=== PATIENT | female | born 1995 ===

== ENCOUNTER 2017-02-28 09:32 | Emergency (ER) | payer MEDICAID ==
[2017-02-28 09:40] VITALS: BP 123/78; PULSE 78; RESP 17; TEMP 97.9; O2SAT 100; BMI 18.0
[2017-02-28] MEDS ORDERED: Sodium Chloride 0.9% 1,000 ML IV STA (09:50)
--- NOTE | 2017-02-28 09:51 | ED PDOC ---
Arrival/HPI - General Time Seen by Provider: 02/28/17 09:37 Historian: Patient - History of Present Illness Narrative History of Present Illness (Text): 02/28/17 09:40 22 year old female, , one had 1 , Blood type O+ (obtained from the 02/23/2017 visit), last sonogram from 02/23/2017 show possible impending missed , nkda, complaining of vaginal spotting on and off x 2 days. Pt. stated that she noticed bright red spotting when she wipes going to the bathroom which she feels it's coming from the vaginal canal, no rectal bleeding or constipation, no fever or chills, had pelvic pain but resolved, been feeling the breast engorgement and tenderness since the beginning of the , no night sweat, no chest pain or shortness of breath, no other medical or psychological complaints. Past Medical History - Provider Review Nursing Documentation Reviewed: Yes - Infectious Disease Hx of Infectious Diseases: None - Psychiatric Hx Substance Use: No - Surgical History Hx Section: Yes - Anesthesia Hx Anesthesia: Yes Hx Anesthesia Reactions: No Hx Malignant Hyperthermia: No - Suicidal Assessment Feels Threatened In Home Enviroment: No Family/Social History - Physician Review Nursing Documentation Reviewed: Yes Family/Social History: Unknown Family HX Smoking Status: Never Smoked Hx Alcohol Use: No Hx Substance Use: No Allergies/Home Meds Allergies/Adverse Reactions: Allergies No Known Allergies Allergy (Verified 02/28/17 09:40) Home Medications: Home Meds Medication Instructions Recorded Confirmed No Known Home Med 02/28/17 02/28/17 Review of Systems - Review of Systems Constitutional: absent: Fatigue, Fevers Eyes: absent: Vision Changes ENT: absent: Hearing Changes Respiratory: absent: SOB, Cough, Sputum Cardiovascular: absent: Chest Pain Gastrointestinal: absent: Abdominal Pain, Nausea, Vomiting Genitourinary Female: Vaginal Bleeding. absent: Dysuria, Frequency, Hematuria, Urine Output Changes, Vaginal Discharge Musculoskeletal: absent: Arthralgias Skin: absent: Rash, Pruritis Neurological: absent: Headache, Dizziness Physical Exam Vital Signs Reviewed: Yes Vital Signs Temp Pulse Resp BP Pulse Ox 02/28/17 09:40 97.9 F 78 17 123/78 100 Temperature: Afebrile Blood Pressure: Normal Pulse: Regular Respiratory Rate: Normal Appearance: Positive for: Well-Appearing, Non-Toxic, Comfortable Pain Distress: None Mental Status: Positive for: Alert and Oriented X 3 - Systems Exam Head: Present: Atraumatic, Normocephalic Pupils: Present: PERRL Extroacular Muscles: Present: EOMI Conjunctiva: Present: Normal Mouth: Present: Moist Mucous Membranes Neck: Present: Normal Range of Motion Respiratory/Chest: Present: Clear to Auscultation, Good Air Exchange. 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 No: Murmurs Abdomen: Present: Normal Bowel Sounds. 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 No: Vaginal Discharge, Vaginal Bleeding, Vaginal Lesions, Adenexal Tenderness, Adenexal Mass, Cervical Motion Tendernes, Odor Back: Present: Normal Inspection Upper Extremity: Present: Normal Inspection. No: Cyanosis, Edema Lower Extremity: Present: Normal Inspection. No: Edema Neurological: Present: GCS=15, Speech Normal, Motor Func Grossly Intact, Memory Normal Skin: Present: Warm, Dry, Normal Color. No: Rashes Psychiatric: Present: Alert, Oriented x 3, Normal Insight, Normal Concentration Medical Decision Making ED Course and Treatment: 02/28/17 09:54 -labs/ua/beta hcg -transvaginal -observe and reassess 02/28/17 11:01 -Labs are non-significant -Beta hcg 95092 from 5006.60 -Urinalysis show no UTI -Sonogram show: IMPRESSION: Intrauterine gestational sac corresponding to approximately 5 weeks 3 days. pole not visualized. No subchorionic hemorrhage. Normal yolk sac. cardiac activity not visualized. Followup with serial beta HCG and transvaginal ultrasound is advised. -Pt. has no active bleeding or pain in the ER -I reviewed all labs and radiology studies with the patient, advised follow up with the pmd and obgyn for routine labs and transvaginal within 48 hours for follow up. -Discharge home with education on taking tylenol for pain as needed, [place] [address] from 5006.60, follow up with your own pmd and obgyn within 2 days , return to the ER for any new or worsening signs or symptoms. - Lab Interpretations Lab Results: 02/28/17 10:00 02/28/17 10:00 Lab Results 02/28/17 10:15: Urine Color Yellow, Urine Appearance Sl cloudy, Urine pH 7.5, Ur Specific [place] 1.020, Urine Protein Negative, Urine Glucose (UA) Negative, Urine Ketones Negative, Urine Blood Trace-intact H, Urine Nitrate Negative, Urine Bilirubin Negative, Urine Urobilinogen 0.2, Ur Leukocyte Esterase Negative , Urine RBC 1 - 3, Urine WBC 0 - 2, Ur Epithelial Cells 4 - 5, Urine Bacteria Few 02/28/17 10:00: Beta HCG, Quant [id number] H 02/28/17 10:00: Sodium 139, Potassium 4.2, Chloride 103, Carbon Dioxide 26, Anion Gap 14, BUN 7, Creatinine 0.6, Est GFR ( Amer) > 60, Est GFR (Non- Af Amer) > 60, Random Glucose 83, Calcium 9.3, Total Bilirubin 0.6, AST 15, ALT 22, Alkaline Phosphatase 42, Total Protein 6.9, Albumin 4.5, Globulin 2.4, Albumin/Globulin Ratio 1.9 H 02/28/17 10:00: WBC 5.8 D, RBC 4.63, Hgb 14.2, Hct 41.5, MCV 89.6, MCH 30.7, MCHC 34.2, RDW 12.1, Plt Count 161, MPV 12.6 H, Gran % 58.4, Lymph % (Auto) 29.1 , [place] % (Auto) 10.0 H, Eos % (Auto) 2.2, Baso % (Auto) 0.3, Gran # 3.37, Lymph # 1.7, [place] # 0.6, Eos # 0.1, Baso # 0.02 I have reviewed the lab results: Yes Interpretation: No clinic. lab abnormalty - RAD Interpretation Radiology Orders: 02/28/17 09:50 OB TRANSVAGINAL [US] Stat PROCEDURE: Obstetrical ultrasound examination HISTORY: approx. 6 weeks , spotting? COMPARISON: Not available TECHNIQUE: Transabdominal and transvaginal FINDINGS: The uterus measures 8.3 x 5.2 x 6.9 cm. There is no uterine mass. There is an intrauterine gestational sac. A yolk sac is identified measuring 4 mm in diameter. There is no pole identified. The gestational sac diameter corresponds to 5 weeks 3 days. There is no cardiac activity evident. There is no subchorionic hemorrhage. The cervix is long and closed. The right ovary measures 2.5 x 2.1 x 2.4 cm. There is no mass. Normal flow is demonstrated. The left ovary measures 3.3 x 1.7 x 2.7 cm. There is no mass. Normal flow is demonstrated. IMPRESSION: Intrauterine gestational sac corresponding to approximately 5 weeks 3 days. pole not visualized. No subchorionic hemorrhage. Normal yolk sac. cardiac activity not visualized. Followup with serial beta HCG and transvaginal ultrasound is advised. Client Services Assistant: Radiologist - Medication Orders Current Medication Orders: Discontinued Medications Sodium Chloride (Sodium Chloride 0.9%) 1,000 mls @ 999 mls/hr IV .Q1H1M STA Stop: 02/28/17 10:50 Last Admin: 02/28/17 09:55 Dose: 999 mls/hr - PA / BITUMEN PLANT OPERATOR / Resident Statement / has reviewed & agrees with the documentation as recorded. Disposition/Present on Arrival - Present on Arrival Any Indicators Present on Arrival: No History of DVT/PE: No History of Uncontrolled Diabetes: No Urinary Catheter: No History of Decub. Ulcer: No History Surgical Site Infection Following: None - Disposition Have Diagnosis and Disposition been Completed?: Yes Diagnosis: First trimester , Vaginal bleeding Disposition: HOME/ ROUTINE Disposition Time: 11:06 Patient Plan: Discharge Condition: GOOD Additional Instructions: -Discharge home with education on taking tylenol for pain as needed, [place] [address] from 5006.60, follow up with your own pmd and obgyn within 2 days , return to the ER for any new or worsening signs or symptoms. Referrals: [employer] Howard Aparicio, [Primary Care Provider] - [place] up [place] [facility] [place] [facility] [place] - Follow up with primary Dennis Giang MD [Staff Provider] - Follow up with primary Forms: WORK NOTE
[2017-02-28 10:14] LABS: BASO # 0.02 K/mm3 (0.0-2.0); BASO % 0.3 % (0.0-3.0); EOS # 0.1 (0.0-0.7); EOS % 2.2 % (1.5-5.0); GRAN # 3.37 (1.4-6.5); GRAN % 58.4 % (50.0-68.0); HEMOGLOBIN 14.2 g/dL (12.0-16.0); LYMPH # 1.7 (1.2-3.4); LYMPH % 29.1 % (22.0-35.0); MEAN CELL VOLUME 89.6 fl (80.0-105.0); MEAN CORPUSCULAR HEMOGLOBIN 30.7 pg (25.0-35.0); MEAN CORPUSCULAR HGB CONC 34.2 g/dl (31.0-37.0); MEAN PLATELET VOLUME 12.6 fl (7.0-11.0); MONO # 0.6 (0.1-0.6); PLATELET COUNT 161 10^3/uL (120.0-450.0); RBC 4.63 10^6/uL (3.5-6.1); RED CELL DISTRIBUTION WIDTH 12.1 % (11.5-14.5); WHITE BLOOD COUNT 5.8 10^3/ul (4.5-11.0)
[2017-02-28 10:24] LABS: ALB/GLOB RATIO 1.9 (1.1-1.8); ALBUMIN 4.5 g/dL (3.0-4.8); ALT/SGPT 22 U/L (7-56); AST/SGOT 15 U/L (15-39); BLOOD UREA NITROGEN 7 mg/dL (7-21); CALCIUM 9.3 mg/dL (8.4-10.5); GFR AFRICAN-AMERICAN > 60; GFR NON-AFRICAN AMERICAN > 60
[2017-02-28 10:35] LABS: PH,URINE 7.5 (4.7-8.0); URINE BILIRUBIN NEGATIVE (NEGATIVE); URINE BLOOD TRACE-INTACT (NEGATIVE); URINE GLUCOSE (UA) NEGATIVE (NEGATIVE); URINE LEUKOCYTE ESTERASE NEGATIVE Leu/uL (NEGATIVE); URINE NITRATE NEGATIVE (NEGATIVE); URINE PROTEIN NEGATIVE mg/dL (<30 mg/dL); URINE UROBILINOGEN 0.2 E.U./dL (<1 E.U./dL)
[2017-02-28 10:41] LABS: URINE APPEARANCE SL CLOUDY (CLEAR); URINE COLOR YELLOW (YELLOW)
[2017-02-28 10:55] LABS: URINE BACTERIA FEW (NEG); URINE WBC 0 - 2 /hpf (0-6)
--- NOTE | 2017-02-28 10:55 | US ---
PROCEDURE: Obstetrical ultrasound examination HISTORY: approx. 6 weeks , spotting? COMPARISON: Not available TECHNIQUE: Transabdominal and transvaginal FINDINGS: The uterus measures 8.3 x 5.2 x 6.9 cm. There is no uterine mass. There is an intrauterine gestational sac. A yolk sac is identified measuring 4 mm in diameter. There is no pole identified. The gestational sac diameter corresponds to 5 weeks 3 days. There is no cardiac activity evident. There is no subchorionic hemorrhage. The cervix is long and closed. The right ovary measures 2.5 x 2.1 x 2.4 cm. There is no mass. Normal flow is demonstrated. The left ovary measures 3.3 x 1.7 x 2.7 cm. There is no mass. Normal flow is demonstrated. IMPRESSION: Intrauterine gestational sac corresponding to approximately 5 weeks 3 days. pole not visualized. No subchorionic hemorrhage. Normal yolk sac. cardiac activity not visualized. Followup with serial beta HCG and transvaginal ultrasound is advised.
== END 2017-02-28 11:17 | disposition home or self-care (01) ==
LOC: ED 09:32
DX: O20.9 Hemorrhage in early pregnancy, unspecified (principal); Z3A.01 Less than 8 weeks gestation of pregnancy
CPT/HCPCS: 76817; 80053; 81001; 84702; 85025; 99284; J7040

== ENCOUNTER 2017-03-02 15:41 | Emergency (ER) | payer MEDICAID ==
[2017-03-02 15:42] VITALS: BMI 18.0
[2017-03-02 15:48] VITALS: TEMP 98.1
[2017-03-02] MEDS ORDERED: Sodium Chloride 0.9% 1,000 ML IV STA (16:25)
--- NOTE | 2017-03-02 16:39 | ED PDOC ---
Arrival/HPI - General Chief Complaint: Abdominal Pain Time Seen by Provider: 03/02/17 15:42 Historian: Patient - History of Present Illness Narrative History of Present Illness (Text): 03/02/17 16:07 A 22 year old female, G2:P1, had 1 , Blood type O+ (obtained from the 02/23/2017 visit), last sonogram 02/23/2017, presents to the emergency department for persistent vaginal bleeding and lower back pain, which began 7 days ago. The patient was recently in the emergency department for the same symptoms, but since they have not changed she came back to the emergency department. She reports the bleeding to be brown spotting and she denies any large amount or gushes of blood. She also notes not being able to tolerate anything by mouth because she is persistently nauseous during her as well as had episodes of vomiting. Denies dysuria or frequency. Time/Duration: 1 week Symptom Onset: Gradual Symptom Course: Unchanged Activities at Onset: Light Context: Home Past Medical History - Infectious Disease Hx of Infectious Diseases: None - Psychiatric Hx Substance Use: No - Surgical History Hx Section: Yes - Anesthesia Hx Anesthesia: Yes Hx Anesthesia Reactions: No Hx Malignant Hyperthermia: No - Suicidal Assessment Feels Threatened In Home Enviroment: No Family/Social History Family/Social History: Unknown Family HX Smoking Status: Never Smoked Hx Alcohol Use: No Hx Substance Use: No Allergies/Home Meds Allergies/Adverse Reactions: Allergies No Known Allergies Allergy (Verified 02/28/17 09:40) Review of Systems - Review of Systems Constitutional: Other (episodes of dizziness,"feels like I get warm") Eyes: absent: Vision Changes ENT: absent: Hearing Changes Respiratory: absent: SOB, Cough Cardiovascular: absent: Chest Pain Gastrointestinal: Nausea, Vomiting. absent: Abdominal Pain, Constipation, Diarrhea, Hematemesis Genitourinary Female: Vaginal Bleeding. absent: Dysuria, Frequency, Hematuria, Urine Output Changes, Vaginal Discharge Musculoskeletal: Back Pain. absent: Neck Pain Skin: Other (pale). absent: Skin Lesions Neurological: absent: Headache, Focal Weakness Endocrine: Diaphoresis Psychiatric: absent: Depression Physical Exam - Physical Exam Narrative Physical Exam (Text): 03/02/17 16:47 Head: Atraumatic. Normocephalic. Eyes: PERRL. EOMI. Conjunctivae are not pale. ENT: Mucous membranes are moist and intact. Oropharynx is clear and symmetric. Neck: Supple. Full ROM. No JVD. No lymphadenopathy. Cardiovascular: Regular rate. Regular rhythm. No murmurs, rubs, or gallops. Distal pulses are 2+ and symmetric. Pulmonary/Chest: No evidence of respiratory distress. Clear to auscultation bilaterally. No wheezing, rales or rhonchi. Abdominal: Very mild suprapublic tenderness. No rebound, guarding, or rigidity. No organomegaly. Good bowel sounds. No ruq pain. No lateral lower abdominal pain. Pelvic: no gross bleeding noted Back: Mild lower lumbar tenderness. Extremities: No edema. No cyanosis. No clubbing. Full range of motion in all extremities. No calf tenderness. Skin: Skin is warm and dry. No petechiae. No purpura. Neurological: Alert, awake, and oriented to person, place, time, and situation. Normal speech. Motor and sensory intact. Psychiatric: Good eye contact. Normal interaction, affect, and behavior. Vital Signs Reviewed: Yes Vital Signs Temp Pulse Resp BP Pulse Ox 03/02/17 20:50 80 17 99/55 L 99 03/02/17 19:00 91 H 18 107/69 98 03/02/17 17:19 98 H 18 105/68 98 03/02/17 15:42 98.1 F 104 H 16 103/66 98 Temperature: Afebrile Blood Pressure: Normal Pulse: Tachycardic Respiratory Rate: Normal Appearance: Positive for: Well-Appearing, Non-Toxic, Comfortable Pain Distress: Mild Mental Status: Positive for: Alert and Oriented X 3 Medical Decision Making ED Course and Treatment: 03/02/17 16:48 Impression: A 22 year old female who is 6 weeks with vaginal bleeding and back pain. States symptoms persistent since last ER visit. Differential Diagnosis included but are not limited to: Intrauterine vs. Ectopic vs. Miscarriage Plan: -- Transvaginal Ultrasound -- Labs -- IV Fluids -- Urinalysis -- Reassess and disposition Prior Visits: Notes and results from previous visits were reviewed. The patient was last seen in the emergency department on 02/28/17 for vaginal bleeding. The patient was discharged home. Progress Notes: On examination, no heavy bleeding. NO ABDOMINAL PAIN. She reports nausea and vomiting for past several days. IV fluids initiated. Labs ordered and ultrasound ordered to reassess from previous visit. OB Pelvic Ultrasound Precinct Commanding Officer : Adebayo Medrano MD Report Date : 03/02/2017 17:36:30 HISTORY:back pain, vaginal bleeding COMPARISON:None available. FINDINGS: UTERUS:There ease an intrauterine gestational sac identified. The gestational sac diameter corresponds to 5 weeks 3 days. A yolk sac is visualized measuring 4 mm. No pole is identified. No cardiac activity is seen. Twila-gestational hemorrhage: None. Uterus measures 6.9 x 4.5 x 4.1 cm. No mass CERVIX:Long and closed. No cervical abnormality seen. RIGHT OVARY:Measures 3.3 x 2.0 x 1.9 cm. No mass. Normal flow. LEFT OVARY:Measures 2.3 x 1.4 x 1.5 cm. No mass. Normal flow. FREE FLUID:None. OTHER FINDINGS:None. IMPRESSION:Intrauterine gestational sac corresponding to approximately 5 weeks 3 days. No pole identified. Followup with transvaginal pelvic ultrasound and serial beta HCG is advised. Patient complained of nausea while in ED. Medications reviewed with patient, side effects of medications reviewed with patient given . Patient received dose of Reglan IV in ED. Patient after receiving this injection , began to feel shaky and dizzy. She was re-evaluated, denied abdominal pain or chest pain or sob. I suspected side effect from Reglan. No respiratory distress or urticaria or angioedema note. Benadryl ordered for the patient. Risks/side effects of this reviewed. Patient with resolution of "shaky" sensation and dizziness after Benadryl. On re-exam, cv stable, no abdominal pain, no chest pain or sob. Ultrasound AND beta hcg levels again reviewed with patient, mother and spouse. Stressed possibility of miscarriage vs. early , although given persistent spotting am concerned for risk of miscarriage. UA results reviewed. Will d/c with abx, advised close f/u with clinical information systems director. - Lab Interpretations Lab Results: 03/02/17 16:30 03/02/17 16:30 Lab Results 03/02/17 16:30: Urine Color Yellow, Urine Appearance Clear, Urine pH 6.5, Ur Specific [place] 1.020, Urine Protein Trace H, Urine Glucose (UA) Negative, Urine Ketones Negative, Urine Blood Small H, Urine Nitrate Negative, Urine Bilirubin Negative, Urine Urobilinogen 1.0 H, Ur Leukocyte Esterase Negative, Urine RBC 1 - 3, Urine WBC 1 - 3, Ur Epithelial Cells 6 - 8, Urine Bacteria Mod 03/02/17 16:30: Beta HCG, Quant [id number] H 03/02/17 16:30: Sodium 137, Potassium 3.9, Chloride 100, Carbon Dioxide 27, Anion Gap 14, BUN 11, Creatinine 0.6, Est GFR ( Amer) > 60, Est GFR (Non- Af Amer) > 60, Random Glucose 83, Calcium 9.6, Total Bilirubin 0.8, AST 43 H, ALT 23, Alkaline Phosphatase 46, Total Protein 7.4, Albumin 4.8, Globulin 2.6, Albumin/Globulin Ratio 1.8 03/02/17 16:30: WBC 8.9 D, RBC 4.87, Hgb 15.1, Hct 42.8, MCV 87.9, MCH 31.0, MCHC 35.3, RDW 12.0, Plt Count 168, MPV 12.7 H, Gran % 70.4 H, Lymph % (Auto) 18.8 L, [place] % (Auto) 9.7 H, Eos % (Auto) 0.9 L, Baso % (Auto) 0.2, Gran # 6.28 , Lymph # 1.7, [place] # 0.9 H, Eos # 0.1, Baso # 0.02 - RAD Interpretation Radiology Orders: 03/02/17 16:40 OB TRANSVAGINAL [US] Stat - Medication Orders Current Medication Orders: Discontinued Medications Diphenhydramine HCl (Benadryl) 50 mg PO STAT STA Stop: 03/02/17 19:02 Last Admin: 03/02/17 19:10 Dose: 50 mg Sodium Chloride (Sodium Chloride 0.9%) 1,000 mls @ 1,000 mls/hr IV .Q1H STA Stop: 03/02/17 17:24 Last Admin: 03/02/17 16:40 Dose: 1,000 mls/hr Metoclopramide HCl (Reglan) 10 mg IVP STAT STA Stop: 03/02/17 17:55 Last Admin: 03/02/17 18:16 Dose: 10 mg - PA / SKIP TENDER / Resident Statement MD/DO has reviewed & agrees with the documentation as recorded. - Scribe Statement The provider has reviewed the documentation as recorded by the Scribe Bertha Doran Provider Scribe Attestation: All medical record entries made by the Julia were at my direction and personally dictated by me. I have reviewed the chart and agree that the record accurately reflects my personal performance of the history, physical exam, medical decision making, and the department course for this patient. I have also personally directed, reviewed, and agree with the discharge instructions and disposition. Disposition/Present on Arrival - Present on Arrival Any Indicators Present on Arrival: No History of DVT/PE: No History of Uncontrolled Diabetes: No Urinary Catheter: No History of Decub. Ulcer: No History Surgical Site Infection Following: None - Disposition Have Diagnosis and Disposition been Completed?: Yes Diagnosis: Threatened , UTI (urinary tract infection) Disposition: HOME/ ROUTINE Disposition Time: 20:30 Patient Plan: Discharge Condition: GOOD Discharge Instructions (ExitCare): Threatened Miscarriage (ED), Urinary Tract Infection in (ED) Additional Instructions: Follow-up with your scruff worker in 2 days. Return to ER immediately if you develop any bleeding, abdominal pain, any lightheadedness or dizziness, any chest pain or shortness of breath, any nausea or vomiting, any numbness or weakness. Take antibiotics as directed for possible urinary tract infection. Your ultrasound today does not reveal a clear heart beat. This may represent a miscarriage although a normal early is also possible, in early stages. It is imperative that you follow-up with your scruff worker and have your "beta-hcg" levels followed. Return to the Emergency Department if your symptoms worsen, do not improve, or if you have any other problems. Avoid medication Reglan/Metoclopramide as possible side effect from this medication. Please contact your doctor or call one of the physicians/clinics you have been referred to that are listed on the Patient Visit Information form that is included in your discharge packet. Bring any paperwork you were given at discharge with you along with any medications you are taking to your follow up visit. Our treatment cannot replace ongoing medical care by a primary care provider (PCP) outside of the emergency department. Thank you for allowing the [facility] team to be part of your care today. If you had an X-Ray or CT scan: A Radiologist will review the ED reading if any change in treatment is needed we will contact you. If you had a blood, urine, or wound culture: It will take several days for the results, if any change in treatment is needed we will contact you. Prescriptions: Nitrofurantoin Macrocrystal [Nitrofurantoin] 100 mg PO BID #10 capsule [facility]errals[facility] [Outside] - Follow up with primary Linsey Mena MD [Primary Care Provider] - Follow up with primary Dennis Giang MD [Staff Provider] - Follow up with primary Forms: [facility] (Mauritian)
[2017-03-02 16:53] LABS: BASO # 0.02 K/mm3 (0.0-2.0); BASO % 0.2 % (0.0-3.0); EOS # 0.1 (0.0-0.7); EOS % 0.9 % (1.5-5.0); GRAN # 6.28 (1.4-6.5); GRAN % 70.4 % (50.0-68.0); HEMATOCRIT 42.8 % (36.0-48.0); LYMPH # 1.7 (1.2-3.4); LYMPH % 18.8 % (22.0-35.0); MEAN CELL VOLUME 87.9 fl (80.0-105.0); MEAN CORPUSCULAR HGB CONC 35.3 g/dl (31.0-37.0); MEAN PLATELET VOLUME 12.7 fl (7.0-11.0); MONO # 0.9 (0.1-0.6); MONO % 9.7 % (1.0-6.0); PH,URINE 6.5 (4.7-8.0); URINE BILIRUBIN NEGATIVE (NEGATIVE); URINE BLOOD SMALL (NEGATIVE); URINE GLUCOSE (UA) NEGATIVE (NEGATIVE); URINE KETONE NEGATIVE (NEGATIVE); URINE LEUKOCYTE ESTERASE NEGATIVE Leu/uL (NEGATIVE); URINE PROTEIN TRACE mg/dL (<30 mg/dL); WHITE BLOOD COUNT 8.9 10^3/ul (4.5-11.0)
[2017-03-02 16:54] LABS: URINE APPEARANCE CLEAR (CLEAR); URINE COLOR YELLOW (YELLOW)
[2017-03-02 17:00] LABS: ALB/GLOB RATIO 1.8 (1.1-1.8); BILIRUBIN,TOTAL 0.8 mg/dL (0.2-1.3); BLOOD UREA NITROGEN 11 mg/dL (7-21); CALCIUM 9.6 mg/dL (8.4-10.5); CARBON DIOXIDE 27 mmol/L (21-33); CHLORIDE 100 mmol/L (98-107); GFR AFRICAN-AMERICAN > 60; GLUCOSE,RANDOM 83 mg/dL (70-110); POTASSIUM 3.9 mmol/L (3.6-5.0); SODIUM 137 mmol/L (132-148); TOTAL PROTEIN 7.4 g/dL (5.8-8.3)
[2017-03-02 17:06] LABS: ALKALINE PHOSPHATASE 46 U/L (38-133); ALT/SGPT 23 U/L (7-56); AST/SGOT 43 U/L (15-39)
[2017-03-02 17:21] LABS: URINE BACTERIA MOD (NEG)
--- NOTE | 2017-03-02 17:38 | US ---
PROCEDURE: OB Pelvic Ultrasound HISTORY: back pain, vaginal bleeding COMPARISON: None available. FINDINGS: UTERUS: There ease an intrauterine gestational sac identified. The gestational sac diameter corresponds to 5 weeks 3 days. A yolk sac is visualized measuring 4 mm. No pole is identified. No cardiac activity is seen. Twila-gestational hemorrhage: None. Uterus measures 6.9 x 4.5 x 4.1 cm. No mass CERVIX: Long and closed. No cervical abnormality seen. RIGHT OVARY: Measures 3.3 x 2.0 x 1.9 cm. No mass. Normal flow. LEFT OVARY: Measures 2.3 x 1.4 x 1.5 cm. No mass. Normal flow. FREE FLUID: None. OTHER FINDINGS: None. IMPRESSION: Intrauterine gestational sac corresponding to approximately 5 weeks 3 days. No pole identified. Followup with transvaginal pelvic ultrasound and serial beta HCG is advised.
[2017-03-02] MEDS ORDERED: DiphenhydrAMINE 50 mg/ml Inj IVP ONE (18:56)
[2017-03-02 20:50] VITALS: BP 99/55; PULSE 80; RESP 17; O2SAT 99
== END 2017-03-02 21:38 | disposition home or self-care (01) ==
LOC: ED 15:41
DX: O20.0 Threatened abortion (principal); O23.41 Unspecified infection of urinary tract in pregnancy, first trimester; Z3A.01 Less than 8 weeks gestation of pregnancy
CPT/HCPCS: 76817; 80053; 81001; 84702; 85025; 96361; 96374; 99284; J2765; J7040

== ENCOUNTER 2017-06-25 21:06 | Emergency (ER) | payer MEDICAID ==
[2017-06-25 21:43] VITALS: BMI 21.7
[2017-06-25 21:47] VITALS: RESP 18
--- NOTE | 2017-06-25 22:40 | ED PDOC ---
Arrival/HPI <Marcus Lainez - Last Filed: 06/25/17 23:14> - General Historian: Patient <Tim Yee A - Last Filed: 06/26/17 01:15> - General Chief Complaint: Female Genitourinary Time Seen by Provider: 06/25/17 21:08 - History of Present Illness Narrative History of Present Illness (Text): 06/25/17 22:37 22yo female who present with complaint intermittent pain on her C section area with vaginal spotting x days now. Also notes nausea and vomiting earlier this morning. States the pain is usually when she lifts heavy objects at work. States it resolved and then happened again when she lifted object at work. Describes pain as cramps. Notes that the pain and bleeding are all currently resolved. She states she is 5months and have a OB. she plan to see the OB tomorrow. she denies fever, dysuria, any other complaint. (Tim Yee A) Past Medical History - Provider Review Nursing Documentation Reviewed: Yes - Infectious Disease Hx of Infectious Diseases: None - Reproductive Currently : Yes - Cardiac Hx Cardiac Disorders: No - Pulmonary Hx Respiratory Disorders: No - Neurological Hx Neurological Disorder: No - HEENT Hx HEENT Disorder: No - Renal Hx Renal Disorder: No - Endocrine/Metabolic Hx Endocrine Disorders: No - Hematological/Oncological Hx Blood Disorders: No - Integumentary Hx Dermatological Disorder: No - Musculoskeletal/Rheumatological Hx Musculoskeletal Disorders: No - Gastrointestinal Hx Gastrointestinal Disorders: No - Genitourinary/Gynecological Hx Genitourinary Disorders: No - Psychiatric Hx Psychophysiologic Disorder: No Hx Substance Use: No - Surgical History Hx Section: Yes - Anesthesia Hx Anesthesia: Yes Hx Anesthesia Reactions: No Hx Malignant Hyperthermia: No - Suicidal Assessment Feels Threatened In Home Enviroment: No <Tim Yee A - Last Filed: 06/26/17 01:15> Family/Social History - Physician Review Nursing Documentation Reviewed: Yes Family/Social History: Unknown Family HX Smoking Status: Never Smoked Hx Alcohol Use: No Hx Substance Use: No <Tim Yee A - Last Filed: 06/26/17 01:15> Allergies/Home Meds <Marcus Lainez - Last Filed: 06/25/17 23:14> <Tim Yee A - Last Filed: 06/26/17 01:15> Allergies/Adverse Reactions: Allergies No Known Allergies Allergy (Verified 06/25/17 21:43) Home Medications: Home Meds Medication Instructions Recorded Confirmed Vit No.126/Iron/Folic 1 tab PO DAILY 06/25/17 06/25/17 [Prenavite] Review of Systems - Physician Review All systems were reviewed & negative as marked: Yes - Review of Systems Constitutional: Normal Eyes: Normal ENT: Normal Respiratory: Normal Cardiovascular: Normal Gastrointestinal: Abdominal Pain, Nausea, Vomiting Genitourinary Female: Vaginal Bleeding (Spotting) Musculoskeletal: Normal Skin: Normal Neurological: Normal Endocrine: Normal Hemo/Lymphatic: Normal Psychiatric: Normal <Diru,Happiness A - Last Filed: 06/26/17 01:15> Physical Exam Vital Signs Reviewed: Yes Temperature: Afebrile Blood Pressure: Normal Pulse: Regular Respiratory Rate: Normal Appearance: Positive for: Well-Appearing, Non-Toxic, Comfortable Pain Distress: None Mental Status: Positive for: Alert and Oriented X 3 - Systems Exam Head: Present: Atraumatic, Normocephalic Pupils: Present: PERRL Extroacular Muscles: Present: EOMI Conjunctiva: Present: Normal Mouth: Present: Moist Mucous Membranes Neck: Present: Normal Range of Motion Respiratory/Chest: Present: Clear to Auscultation, Good Air Exchange. No: Respiratory Distress, Accessory Muscle Use Cardiovascular: Present: Regular Rate and Rhythm, Normal S1, S2. No: Murmurs Abdomen: Present: Distention (Gravid abdomen), Normal Bowel Sounds. No: Tenderness, Peritoneal Signs, Rebound, Guarding, McBurney's Point Tender, Rovsing's Sign Present Back: Present: Normal Inspection Upper Extremity: Present: Normal Inspection. No: Cyanosis, Edema Lower Extremity: Present: Normal Inspection. No: Edema Neurological: Present: GCS=15, CN II-XII Intact, Speech Normal Skin: Present: Warm, Dry, Normal Color. No: Rashes Psychiatric: Present: Alert, Oriented x 3, Normal Insight, Normal Concentration <Diru,Happiness A - Last Filed: 06/26/17 01:15> Vital Signs Temp Pulse Resp BP Pulse Ox 06/25/17 21:44 99.1 F 110 H 18 121/62 98 06/25/17 21:42 99.1 F 110 H 19 121/62 98 Medical Decision Making <Marcus Lainez - Last Filed: 06/25/17 23:14> <Tim Yee - Last Filed: 06/26/17 01:15> ED Course and Treatment: 06/26/17 01:09 Pt present for stated history. she was comfortable in ED. Denied any abdominal pain/vaginl bleeding in ED. [place] [address].00 noted. age US IMPRESSION: 1. Single viable intrauterine fetus in cephalic presentation. 2. Estimated gestational age is 23 weeks 3 days. 3. The anatomic survey is described above Result was DW the pt. she plan to see the OB later today and was strongly advised to do so. Patient is likely at risk for pre term labor with the heavy object lifting she lifts at work. Advised to stop lifting. (Tim Yee) - Lab Interpretations Lab Results: 06/25/17 22:34 06/25/17 22:34 Lab Results 06/25/17 22:34: Beta HCG, Quant 27052.00 H 06/25/17 22:34: Sodium 135, Potassium 3.7, Chloride 100, Carbon Dioxide 29, Anion Gap 10, BUN 8, Creatinine 0.5 L, Est GFR ( Amer) > 60, Est GFR (Non -Af Amer) > 60, Random Glucose 87, Calcium 8.9, Total Bilirubin 0.2, AST 22, ALT 27, Alkaline Phosphatase 57, Total Protein 6.5, Albumin 3.5, Globulin 3.0, Albumin/Globulin Ratio 1.2 06/25/17 22:34: Urine Color Yellow, Urine Appearance Turbid, Urine pH 7.0, Ur Specific [place] 1.020, Urine Protein Trace H, Urine Glucose (UA) Negative, Urine Ketones Trace H, Urine Blood Negative, Urine Nitrate Negative, Urine Bilirubin Negative, Urine Urobilinogen 0.2, Ur Leukocyte Esterase Negative, Urine RBC 0 - 2, Urine WBC 0 - 2, Ur Epithelial Cells 1 - 3, Calcium Oxalate Crystal Few, Amorphous Sediment Many, Urine HCG, Qual Positive 06/25/17 22:34: PT 11.0, INR 1.01, APTT 33.2 06/25/17 22:34: WBC 12.4 H D, RBC 3.52, Hgb 10.7 L D, Hct 32.4 L, MCV 92.0 D, MCH 30.4, MCHC 33.0, RDW 12.4, Plt Count 238, MPV 11.3 H, Gran % 71.9 H, Lymph % (Auto) 18.0 L, [place] % (Auto) 7.2 H, Eos % (Auto) 2.7, Baso % (Auto) 0.2, Gran # 8.95 H, Lymph # 2.2, [place]cl[place] # 0.9 H, Eos # 0.3, Baso # 0.02 - RAD Interpretation Radiology Orders: 06/25/17 21:55 AGE [US] Stat - Medication Orders Current Medication Orders: Discontinued Medications Sodium Chloride (Sodium Chloride 0.9%) 1,000 mls @ 999 mls/hr IV .Q1H1M STA Stop: 06/25/17 23:51 Last Admin: 06/25/17 23:01 Dose: 999 mls/hr eMAR Start Stop Document 06/25/17 23:01 OCS (Rec: 06/25/17 23:01 OCS [id number]) Intravenous Solution Start Date 06/25/17 Start Time 23:01 End Date 06/26/17 End time 00:01 Total Infusion Time 60 - PA / MARBLE CARVER / Resident Statement / has reviewed & agrees with the documentation as recorded. <Marcus Lainez - Last Filed: 06/25/17 23:14> Disposition/Present on Arrival <Marcus Lainez - Last Filed: 06/25/17 23:14> - Present on Arrival Any Indicators Present on Arrival: No History of DVT/PE: No History of Uncontrolled Diabetes: No Urinary Catheter: No History of Decub. Ulcer: No History Surgical Site Infection Following: None - Disposition Have Diagnosis and Disposition been Completed?: Yes Disposition Time: 01:15 Patient Plan: Discharge <Tim Yee - Last Filed: 06/26/17 01:15> - Disposition Diagnosis: Abdominal pain affecting Disposition: HOME/ ROUTINE Condition: STABLE Discharge Instructions (ExitCare): Abdominal Pain (ED) Additional Instructions: Follow up with your OB Avoid lifting until your cleared by your OB Return to ED for any new or worsening symptoms Referrals: Shaik Kraft MD [Primary Care Provider] - Follow up with primary Forms: [employer] (Ukrainian)
[2017-06-25 22:48] LABS: BASO # 0.02 K/mm3 (0.0-2.0); BASO % 0.2 % (0.0-3.0); EOS # 0.3 (0.0-0.7); EOS % 2.7 % (1.5-5.0); GRAN # 8.95 (1.4-6.5); GRAN % 71.9 % (50.0-68.0); HEMATOCRIT 32.4 % (36.0-48.0); LYMPH # 2.2 (1.2-3.4); MEAN CORPUSCULAR HEMOGLOBIN 30.4 pg (25.0-35.0); MEAN PLATELET VOLUME 11.3 fl (7.0-11.0); MONO # 0.9 (0.1-0.6); MONO % 7.2 % (1.0-6.0); RED CELL DISTRIBUTION WIDTH 12.4 % (11.5-14.5); URINE BILIRUBIN NEGATIVE (NEGATIVE); URINE BLOOD NEGATIVE (NEGATIVE); URINE GLUCOSE (UA) NEGATIVE (NEGATIVE); URINE KETONE TRACE mg/dL (NEGATIVE); URINE LEUKOCYTE ESTERASE NEGATIVE Leu/uL (NEGATIVE); URINE PROTEIN TRACE mg/dL (<30 mg/dL); URINE UROBILINOGEN 0.2 E.U./dL (<1 E.U./dL); WHITE BLOOD COUNT 12.4 10^3/ul (4.5-11.0)
[2017-06-25] MEDS ORDERED: Sodium Chloride 0.9% 1,000 ML IV STA (22:51)
[2017-06-25 22:52] LABS: URINE APPEARANCE TURBID (CLEAR); URINE COLOR YELLOW (YELLOW)
[2017-06-25 22:53] LABS: ALB/GLOB RATIO 1.2 (1.1-1.8); ALKALINE PHOSPHATASE 57 U/L (38-126); ALT/SGPT 27 U/L (7-56); AST/SGOT 22 U/L (14-36); BILIRUBIN,TOTAL 0.2 mg/dL (0.2-1.3); BLOOD UREA NITROGEN 8 mg/dL (7-21); CALCIUM 8.9 mg/dL (8.4-10.5); CARBON DIOXIDE 29 mmol/L (21-33); CHLORIDE 100 mmol/L (98-107); GFR AFRICAN-AMERICAN > 60; GLUCOSE,RANDOM 87 mg/dL (70-110); POTASSIUM 3.7 mmol/L (3.6-5.0); SODIUM 135 mmol/L (132-148); TOTAL PROTEIN 6.5 g/dL (5.8-8.3)
[2017-06-25 23:02] LABS: URINE AMORPHOUS SEDIMENT MANY; URINE CALCIUM OXALATE CRYSTALS FEW /hpf; URINE RBC 0 - 2 /hpf (0-2); URINE WBC 0 - 2 /hpf (0-6)
[2017-06-25 23:04] LABS: INR 1.01 (0.93-1.08); PARTIAL THROMBOPLASTIN TIME 33.2 Seconds (25.1-36.5)
--- NOTE | 2017-06-26 01:07 | US ---
EXAM: US After First Trimester, Transabdominal EXAM DATE/TIME: 06/25/2017 9:55 PM CLINICAL HISTORY: The patient age is 22 years old and is female; Pain; complicated by abdominal or pelvic pain; Lower; Second trimester; Gestational age or lmp: 23w3d; ; Additional info: Abdominal pain/spotting Facility exam id and description: Us age TECHNIQUE: Real-time transabdominal obstetrical ultrasound of the maternal pelvis and a second or third trimester with image documentation. COMPARISON: US - OB TRANSVAGINAL 2017-03-02 17:00 FINDINGS: Fetus: Single intrauterine gestation. Heart rate: heart rate is 146 bpm. Presentation: Cephalic presentation. Placenta: Placenta is posterior and free of the os. Amniotic fluid: Volume of amniotic fluid is subjectively normal for gestational age; the MADAI is not measured. Anatomy: 4 chamber heart, lateral ventricles, brain, spine, and urinary bladder are normal. Evaluation of the kidneys and stomach is limited. Umbilical cord insertion is anterior. There is a three-vessel cord. Evaluation of the hands and feet is limited. BIOMETRICS Gestational age by US: Estimated gestational age is 23 weeks 3 days. EFW: Estimated weight is 588.04 g, which is 53.6% for gestational age. BPD: 5.61 cm GA 23 weeks 1 day HC: 21.43 cm GA 23 weeks 3 days AC: 18.45 cm GA 23 weeks 2 days FL: 4.16 cm GA 23 weeks 4 days MATERNAL: Uterus: No visualized myometrial mass. Cervix: There is no evidence of cervical incompetence. The cervical length is 5.5 cm. Adnexa: The left ovary measures 2.6 x 1.6 x 2.5 cm. There is physiologic blood flow within each ovary. The right ovary measures 2.6 x 2.0 x 3.2 cm. IMPRESSION: 1. Single viable intrauterine fetus in cephalic presentation. 2. Estimated gestational age is 23 weeks 3 days. 3. The anatomic survey is described above.
[2017-06-26 01:25] VITALS: BP 118/60; PULSE 92; TEMP 98.8; O2SAT 100
== END 2017-06-26 01:25 | disposition home or self-care (01) ==
LOC: ED 21:06
DX: O26.892 Other specified pregnancy related conditions, second trimester (principal); Z3A.23 23 weeks gestation of pregnancy; R10.9 Unspecified abdominal pain
CPT/HCPCS: 76815; 80053; 81001; 84702; 84703; 85025; 85610; 85730; 96360; 99284; J7040